=== PATIENT | male | born 1965 | race Asian ===

== ENCOUNTER 2020-06-20 14:32 | Emergency (ER) | payer OTHER ==
[2020-06-20 14:37] VITALS: BP 156/105; PULSE 100; TEMP 98.5; BMI 28.8
[2020-06-20] MEDS ORDERED: ACETAMINOPHEN 500 MG TABLET (FP) PO ONE (15:08)
[2020-06-20] MEDS ORDERED: ACETAMINOPHEN 500 MG TABLET (FP) ONE (15:16)
== END 2020-06-20 16:34 | disposition home or self-care (01) ==
LOC: JERFT 14:32
DX: M25.562 Pain in left knee (principal); M54.5 Low back pain
CPT/HCPCS: 72100-TC-FY; 73562-TC-LT-FY; 99284-25

== ENCOUNTER 2022-08-16 16:03 | Emergency (ER) | payer OTHER ==
[2022-08-16] MEDS ORDERED: ASPIRIN 81 MG CHEWABLE TABLETS PO ONE (16:10)
[2022-08-16] MEDS ORDERED: ASPIRIN 81 MG CHEWABLE TABLETS ONE (16:11)
[2022-08-16 16:18] VITALS: BMI 29.6
[2022-08-16 16:22] VITALS: PULSE 90
[2022-08-16] MEDS ORDERED: HEPARIN NA (PORCINE) 5,000 UNITS/ML 1ML VIAL IVPUSH ONE (16:25)
[2022-08-16] MEDS ORDERED: HEPARIN NA (PORCINE) 5,000 UNITS/ML 1ML VIAL IVPUSH PRN ×2 (16:25)
[2022-08-16 16:28] LABS: BASO % 0.6 % (0-2.0); EOS % 0.6 % (0-4.5); HEMATOCRIT 41.8 % (35.4-49); HEMOGLOBIN 14.5 GM/dL (11.7-16.9); LYMPH % 32.9 % (8-40); MCH 29.6 pg (25.7-33.7); MCHC 34.7 g/dl (32.0-35.9); MEAN CELL VOLUME 85.2 fl (80-96); MEAN PLT VOLUME 7.2 fl (7.5-11.1); MONO % 5.8 % (3.8-10.2); NEUT % 60.1 % (42.8-82.8); PLATELET COUNT 323 10^3/uL (134-434); RBC 4.91 M/mm3 (4.00-5.60); RDW 14.4 % (11.9-15.9); WHITE BLOOD COUNT 8.4 K/mm3 (4.0-10.0)
[2022-08-16] MEDS ORDERED: HEPARIN NA (PORCINE) 5,000 UNITS/ML 1ML VIAL ONE (16:30)
[2022-08-16] MEDS ORDERED: HEPARIN INFUSION - 25,000 UNITS/500 ML INFUS.BAG IVPB ONE (16:30)
[2022-08-16 16:34] LABS: INR 1.04 (0.83-1.09); PROTHROMBIN TIME (PATIENT) 12.1 SEC (9.7-13.0)
[2022-08-16 16:36] LABS: ACTIVATED PTT 29.9 SECONDS (25.2-36.5)
[2022-08-16] MEDS: HEPARIN - 25,000 UNIT in SODIUM CHLORIDE 495 ML IV SCH ×2 (16:43→16:47)
[2022-08-16] MEDS ORDERED: HEPARIN INFUSION - 25,000 UNITS/500 ML INFUS.BAG IVPB SCH (17:00)
[2022-08-16 17:04] LABS: CALCIUM 9.3 mg/dL (8.5-10.1)
[2022-08-16 17:05] LABS: BLOOD UREA NITROGEN 12.1 mg/dL (7-18)
[2022-08-16 17:07] VITALS: BP 185/96; RESP 18; TEMP 98
[2022-08-16 17:08] LABS: CREATININE 0.9 mg/dL (0.55-1.3)
[2022-08-16 17:10] LABS: BILIRUBIN,TOTAL 0.9 mg/dL (0.2-1); TOT PROT 7.2 g/dl (6.4-8.2)
== END 2022-08-16 17:09 | disposition short-term general hospital (02) ==
LOC: JER 16:03
PROC: 3E033NZ Introduction of Analgesics, Hypnotics, Sedatives into Peripheral Vein, Percutaneous Approach (ICD-10-PCS; principal; 2022-08-16)
DX: I21.3 ST elevation (STEMI) myocardial infarction of unspecified site (principal); R11.2 Nausea with vomiting, unspecified; R07.89 Other chest pain; Z20.822 Contact with and (suspected) exposure to COVID-19
CPT/HCPCS: 36415; 71045-TC-FY; 80053; 84484; 85025; 85610; 85730; 86900; 93005; 93010; 99291; C9803-CS; J1644; U0003; U0005

== ENCOUNTER 2023-08-30 22:32 | Emergency (ER) | payer OTHER ==
[2023-08-30 22:37] VITALS: BP 174/92; PULSE 86; RESP 18; TEMP 97.8; BMI 28.8
== END 2023-08-31 | disposition home or self-care (01) ==
LOC: JERFT 22:32
DX: S01.312A Laceration without foreign body of left ear, initial encounter (principal); W26.8XXA Contact with other sharp object(s), not elsewhere classified, initial encounter
CPT/HCPCS: 99283-25